=== PATIENT | female | born 1995 | race Caucasian/White ===

== ENCOUNTER 2017-04-27 03:20 | Emergency (ER) | payer BC ==
[2017-04-27 03:29] VITALS: RESP 16
--- NOTE | 2017-04-27 03:34 | EDPHY ---
H & P Stated Complaint: "IUD MISPLACED" HPI/ROS: HPI CHIEF COMPLAINT: "I think my IUD is out of place" HISTORY OF PRESENT ILLNESS: Patient is a 21-year-old female she presents to the emergency room stating that she thinks her IUD is out of place. She reports to me that she had her IUD placed in February at [facility]. She now presents emergency room stating for the past few days she has had some lower pelvic cramping pain and some vaginal discharge. Her last period was in the middle February last for 4 days. She denies any fever. Denies any vaginal discharge except for light spotting. She does state that she has dysuria when she urinates. She denies being she does state that she has unprotected intercourse with 2 partners. Additionally she reports to me she just completed a course of antibiotics for bacterial vaginosis. She decided come to the emergency room at 3:30 a.m. in the morning for lower pelvic cramping that is been going on over the past few days. Additionally she reports some vaginal discomfort, and dysuria. Denies being . Past Medical History: Denies significant medical history, however was recently treated for bacterial vaginitis Past Surgical History: Denies surgical history Social History: Denies daily use of drugs alcohol tobacco. [employer] student. Family History: Noncontributory ROS REVIEW OF SYSTEMS: A comprehensive 10 point review of systems is otherwise negative aside from elements mentioned in the history of present illness. Exam Constitutional triage nursing summary reviewed, vital signs reviewed, awake/ alert. Eyes normal conjunctivae and sclera, EOMI, PERRLA. HENT normal inspection, atraumatic, moist mucus membranes, no epistaxis, neck supple/ no meningismus, no raccoon eyes. Respiratory clear to auscultation bilaterally, normal breath sounds, no respiratory distress, no wheezing. Cardiovascular rate normal, regular rhythm, no murmur, no edema, distal pulses normal. Gastrointestinal soft, non-tender, no rebound, no guarding, normal bowel sounds, no distension, no pulsatile mass. Genitourinary pelvic exam: Madeleine RN at bedside: Unknown feel to visualize IUD strings. Os closed. No pus. No significant CMT. Does have some bilateral adnexal tenderness on exam otherwise no foul odor no lesions. Musculoskeletal no midline vertebral tenderness, full range of motion, no calf swelling, no tenderness of extremities, no meningismus, good pulses, neurovascularly intact. Skin pink, warm, & dry, no rash, skin atraumatic. Neurologic awake, alert and oriented x 3, AAOx3, moves all 4 extremities equally, motor intact, sensory intact, CN II-XII intact, normal cerebellar, normal vision, normal speech. Psychiatric normal mood/affect. Heme/Lymph/Immune no lymphadenopathy. Differential Diagnosis: Includes but is not limited to in a particular order acute vaginitis, pelvic infection, PID, IUD out of alignment, ovarian torsion, ovarian cyst, , ectopic Medical Decision Making: Plan for this patient pelvic exam, evaluate where IUD , pelvic ultrasound, vaginal specimens, gonorrhea and chlamydia test, check basic blood work and re-evaluate. Re-evaluation: 0600AM: Spoke with Dr. Cintron, with OBGYN discussed the case extensively. Recommends follow-up today in their office for IUD removal. I have given the patient this information referral information. I will allow her to go home with some [place] for pain control. I do recommend she closely follows up with them today. Additionally she should return emergency room if she has worsening pain fever vomiting. Her blood work, ultrasound, pelvic exam, UA, vaginal specimens have been reviewed. Vital have any evidence that there is infection on exam specifically I do not see any evidence of PID or vaginitis. Most likely cause of pain is malpositioned IUD. Recommend close follow up with OBGYN. Return if worse. She understands she should call OBGYN today make a follow-up appointment. Source: Patient - Personal History LMP (Females 10-55): IUD In Place Current Tetanus Diphtheria and Acellular Pertussis (TDAP): Yes - Medical/Surgical History Hx Asthma: No Hx Chronic Respiratory Disease: No Hx Diabetes: No Hx Cardiac Disease: No Hx Renal Disease: No Hx Cirrhosis: No Hx Alcoholism: No Hx HIV/AIDS: No Hx Splenectomy or Spleen Trauma: No Other PMH: DENIES - Social History Smoking Status: Former smoker Constitutional: Initial Vital Signs Temperature (C) 36.8 C 04/27/17 03:26 Heart Rate 108 H 04/27/17 03:26 Respiratory Rate 16 04/27/17 03:26 Blood Pressure 131/72 H 04/27/17 03:26 O2 Sat (%) 100 04/27/17 03:26 O2 Delivery Mode Room Air Allergies/Adverse Reactions: No Known Allergies Allergy (Unverified 04/27/17 03:25) Home Medications: Medication Instructions Recorded Hydrocodone/APAP [[place] 1 - 2 tab PO Q4H PRN #10 tab 04/27/17] Medical Decision Making - Data Points Laboratory Results: Laboratory Results 04/27/17 04:38 04/27/17 04:38 04/27/17 04/27/17 04/27/17 04:38 04:38 04:38 WBC 9.28 10^3/uL 10^3/uL (3.80-9.50) RBC 4.33 10^6/uL 10^6/uL (4.18-5.33) Hgb 13.9 g/dL g/dL (12.6-16.3) Hct 38.7 % % (38.0-47.0) MCV 89.4 fL fL (81.5-99.8) MCH 32.1 pg pg (27.9-34.1) MCHC 35.9 g/dL g/dL (32.4-36.7) RDW 12.5 % % (11.5-15.2) Plt Count 347 10^3/uL 10^3/uL (150-400) MPV 10.7 fL fL (8.7-11.7) Neut % (Auto) 41.2 % % (39.3-74.2) Lymph % (Auto) 43.8 % % (15.0-45.0) Mclennan % (Auto) 7.2 % % (4.5-13.0) Eos % (Auto) 6.8 % % (0.6-7.6) Baso % (Auto) 0.8 % % (0.3-1.7) Nucleat RBC Rel Count 0.0 % % (0.0-0.2) Absolute Neuts (auto) 3.83 10^3/uL 10^3/uL (1.70-6.50) Absolute Lymphs (auto) 4.06 10^3/uL H 10^3/uL (1.00-3.00) Absolute Monos (auto) 0.67 10^3/uL 10^3/uL (0.30-0.80) Absolute Eos (auto) 0.63 10^3/uL H 10^3/uL (0.03-0.40) Absolute Basos (auto) 0.07 10^3/uL 10^3/uL (0.02-0.10) Absolute Nucleated RBC 0.00 10^3/uL 10^3/uL (0-0.01) Immature Gran % 0.2 % % (0.0-1.1) Immature Gran # 0.02 10^3/uL 10^3/uL (0.00-0.10) Sodium 140 mEq/L mEq/L (135-145) Potassium 3.5 mEq/L mEq/L (3.5-5.2) Chloride 103 mEq/L mEq/L (97-110) Carbon Dioxide 22 mEq/l mEq/l (22-31) Anion Gap 15 mEq/L mEq/L (8-16) BUN 13 mg/dL mg/dL (7-23) Creatinine 1.0 mg/dL mg/dL (0.6-1.0) Estimated GFR > 60 Glucose 97 mg/dL mg/dL (70-100) Calcium 9.6 mg/dL mg/dL (8.5-10.4) Beta HCG, Qual NEGATIVE Urine Color Urine Appearance Urine pH Ur Specific [place] Urine Protein Urine Ketones Urine Blood Urine Nitrate Urine Bilirubin Urine Urobilinogen Ur Leukocyte Esterase Urine RBC Urine WBC Ur Epithelial Cells Urine Bacteria Urine Mucus Urine Glucose Trichomonas (Wet Prep) Helene species DNA Gardnerella DNA Probe N.gonorrhoeae RNA (TMA) Trichomonas DNA Probe 04/27/17 04/27/17 04/27/17 04:00 03:45 03:45 WBC RBC Hgb Hct MCV MCH MCHC RDW Plt Count MPV Neut % (Auto) Lymph % (Auto) Mclennan % (Auto) Eos % (Auto) Baso % (Auto) Nucleat RBC Rel Count Absolute Neuts (auto) Absolute Lymphs (auto) Absolute Monos (auto) Absolute Eos (auto) Absolute Basos (auto) Absolute Nucleated RBC Immature Gran % Immature Gran # Sodium Potassium Chloride Carbon Dioxide Anion Gap BUN Creatinine Estimated GFR Glucose Calcium Beta HCG, Qual Urine Color PALE YELLOW Urine Appearance CLEAR Urine pH 6.0 (5.0-7.5) Ur Specific [place] 1.005 (1.002-1.030) Urine Protein NEGATIVE (NEGATIVE) Urine Ketones NEGATIVE (NEGATIVE) Urine Blood 1+ H (NEGATIVE) Urine Nitrate NEGATIVE (NEGATIVE) Urine Bilirubin NEGATIVE (NEGATIVE) Urine Urobilinogen NEGATIVE EU EU (0.2-1.0) Ur Leukocyte Esterase NEGATIVE (NEGATIVE) Urine RBC NONE SEEN /hpf /hpf (0-3) Urine WBC 1-3 /hpf /hpf (0-3) Ur Epithelial Cells TRACE /lpf /lpf (NONE-1+) Urine Bacteria TRACE /hpf H /hpf (NONE SEEN) Urine Mucus TRACE /lpf /lpf (NONE-1+) Urine Glucose NEGATIVE (NEGATIVE) Trichomonas (Wet Prep) RARE WBC H Helene species DNA Pending Gardnerella DNA Probe Pending N.gonorrhoeae RNA (TMA) Pending Trichomonas DNA Probe Pending Departure - Departure Disposition: Home, Routine, Self-Care Clinical Impression: IUD complication Qualifiers: Device complication type: mechanical Mechanical complication type: displacement Encounter type: initial encounter Qualified Code(s): T83.32XA - Displacement of intrauterine contraceptive device, initial encounter Condition: Good Instructions: Pelvic Pain in Women (ED) Additional Instructions: 1. Please call OBGYN this morning and make a follow-up appointment you should be seen there today to have her IUD removed. 2. Return emergency room if you have severe pain, vomiting or fever. 3. [place] for pain control. Referrals: NONE *PRIMARY CARE P,. [Primary Care Provider] - As per Instructions Koko Navarro MD [Medical Doctor] - As per Instructions Prescriptions: Hydrocodone/APAP 5/325 [[place] 5/325] 1 - 2 tab PO Q4H PRN #10 tab PRN Reason: Pain, Moderate
[2017-04-27 04:49] LABS: PLATELET COUNT 347 10^3/uL (150-400)
[2017-04-27 07:11] VITALS: BP 131/74; PULSE 74; TEMP 98.1; O2SAT 96
== END 2017-04-27 07:11 | disposition home or self-care (01) ==
DX: T83.32XA Displacement of intrauterine contraceptive device, initial encounter (principal); Z87.891 Personal history of nicotine dependence; Y82.8 Other medical devices associated with adverse incidents